=== PATIENT | female | born 1970 | race Caucasian/White ===

== ENCOUNTER 2018-02-16 13:05 | Outpatient (CLI) | payer BC ==
--- NOTE | 2018-02-16 17:14 | PET ---
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 RADIOPHARMACEUTICAL: 10.4 millicuries of F18-FDG IV was utilized. TECHNIQUE: PET CT images were performed from the vertex of the skull through the mid thighs bilaterally after ad ministration of radiopharmaceutical. No comparisons are available. FINDINGS: The biodistribution for the examination appears acceptable. HEAD AND NECK: There is diffuse increased density involving the right parotid gland with mild diffuse increased meta bolic activity. No hypermetabolic uptake is evident. No hypermetabolic lymphadenopathy is evident. CHEST: No hypermetabolic pulmonary nodule or pleural effusion is evident. 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 ABDOMEN AND PELVIS: No hypermetabolic mass or lymphadenopathy is seen within the abdomen. There is a 3.4 cm suspected cys t within the left hepatic lobe without associated hypermetabolic activity. There is normal appendix i n the right lower quadrant. SKIN AND OSSEOUS STRUCTURES: No hypermetabolic skin or osseous lesion is identified. IMPRESSION: Diffuse increased density and mild increased metabolic activity involving the right parotid gland is likely related to prior therapy changes. No focal area of hypermetabolic activity is seen to suggest residual disease or metastatic disease. POS: [facility]
== END 2018-02-16 13:06 | disposition home or self-care (01) ==
LOC: PET 13:05
DX: C08.9 Malignant neoplasm of major salivary gland, unspecified (principal)
CPT/HCPCS: 78815; A9552